=== PATIENT | female | born 1985 | race Hispanic/Latino ===

== ENCOUNTER 2022-03-29 08:55 | Outpatient (CLI) | payer BC | END 2022-03-29 08:56 | disposition home or self-care (01) | LOC: CSHRAD 08:55 | PROVIDERS: ATTEND Internal Medicine Gastroenterology | DX: R13.10 Dysphagia, unspecified (principal); K21.9 Gastro-esophageal reflux disease without esophagitis; K22.2 Esophageal obstruction | CPT/HCPCS: 74220 ==

== ENCOUNTER 2023-08-08 14:23 | Outpatient (CLI) | payer BC | END 2023-08-08 14:24 | disposition home or self-care (01) | LOC: CSHMAMMO 14:23 | PROVIDERS: ATTEND Nurse Practitioner Family | DX: Z12.31 Encounter for screening mammogram for malignant neoplasm of breast (principal); Z80.3 Family history of malignant neoplasm of breast | CPT/HCPCS: 77063; 77067 ==